=== PATIENT | male | born 1955 | race Caucasian/White ===

== ENCOUNTER 2025-03-03 22:39 | Emergency (ER) | payer MEDICARE, OTHER ==
[~2025-03-03] VITALS: Ht 180.3 cm; Wt 79.4 kg
[2025-03-03 22:47] VITALS: BP 135/84; TEMP 98.6; O2SAT 98
[2025-03-03] MEDS ORDERED: AMOX-430 PO (23:07)
[2025-03-03] MEDS ORDERED: TDAP [DIPH/PERTUSSIS/TET] 0.5 ML VIAL IM ONE ×2 (23:11→23:30)
[2025-03-03] MEDS ORDERED: AMOX/CLAVULANATE 875 MG TABLET ONE ×2 (23:11→23:18)
[2025-03-03] MEDS: AMOX/CLAVULANATE 875 MG TABLET PO ONE (23:21)
== END 2025-03-03 23:26 | disposition home or self-care (01) ==
LOC: ER 22:44
DX: S61.451A Open bite of right hand, initial encounter (principal); W55.01XA Bitten by cat, initial encounter; Y93.89 Activity, other specified; Y92.89 Other specified places as the place of occurrence of the external cause; Y99.8 Other external cause status
CPT/HCPCS: 90715